=== PATIENT | female | born 1975 | race Caucasian/White ===

== ENCOUNTER 2024-02-14 14:30 | Outpatient (RCR) | payer BC, SELFPAY ==
--- NOTE | 2024-01-22 11:50 | OPREHPOC ---
Outpatient Therapy Plan of Care This is a Multidisciplinary Plan of Care that may contain components documented by all disciplines (PT, OT, and ST.) PT Problem 1 PT Problem #1 Knowledge Deficit PT Goal 1 Goal / Goal Update [place] with HEP PT Goal 2 Goal / Goal Update Patient will report 75% improvement in frequency and intensity of shoulder and neck pain Target Visit 8 PT Problem 2 PT Problem #2 Impaired Functional Mobil PT Goal 1 Goal / Goal Update Patient will report absence of distal tingling and numbness into fingers Target Visit 8 PT Goal 2 Goal / Goal Update Patient will reflect 15% + reduction in disability index with QuickDASH Target Visit 8 PT Problem 3 PT Problem #3 Impaired Strength PT Goal 1 Goal / Goal Update Improve tyesha shoulder external rotatin strength to 5/5 to improve shoulder girdle stability too improve overhead activity Target Visit 8 PT Goal 2 Goal / Goal Update Patient will demonstrate ability to lift 5# overhead x 10 without upper trapezius substitution Target Visit 8
--- NOTE | 2024-01-22 11:50 | PTOPEVAL1 ---
Assessment and note entered by Jack Cerna, PT Evaluation Information Assessment Status Evaluation Diagnosis M75.112 Supraspinatus tear ICD-10 Condition Codes (PT) M25.512 Onset January 2023 Subjective Information Reports that she is feeling pain at base of the neck and the worse part of her day is driving. She is currently getting a pull on the posterior shoulder and tingling all the way to her thumb and fingers. The more she lifts, the more shoulder pain she gets. Increase pain with left posterior quadrant motion. Sleeping is not too bad, but pain is based on activity. She takes Ibuprophen only when it is really bad. Reported Pain Level Pain Score 1: Self Report Assessment PT Clinical Summary Patient presents with dynamic cervical compression and weakness of left upper rotator cuff consistent with rotator cuff tendinopathy. Patient will benefit from skilled therapy to address these deficits to improve ROM, Improve shoulder girdle stability, and reduce pain. Plan of Care Interventions Electrical Stimulation,Hot Pack/Cold Pack,Manual Therapy,Neuro Re-education,Therapeutic Activities, Therapeutic Exercise Other Interventions Dry Needling PT Services Indicated Yes Treatment Frequency and 2x/week for 8 visits Duration These treatments will address the objective and functional deficits as defined above. The patient will be advanced safely and appropriately in order for the patient to progress towards his/her prior level of function. Additional exercises will be introduced and as well as a comprehensive home exercise program upon discharge, if needed, ?to ensure carryover of functional gains achieved in the clinic. This treatment plan has been reviewed and agreement upon by the patient.
--- NOTE | 2024-02-14 15:20 | PTOPDC ---
Assessment and note entered by Maria Ines Salmeron, PT Discharge Report Assessment Status Discharge Diagnosis M75.112 Supraspinatus tear ICD-10 Condition Codes (PT) M25.512 Onset January 2023 Subjective Information therapy has helped a little, but still have pain and tingling and numbness into L fingers; like dry needling; have appt with yasir cristina Mar 06; awaiting approval for MRI of shoulder; have been doing the exercises and stretching at home; wants to stop therapy for now, get the MRI and see the ortho . Reported Pain Level Pain Score Self Report Additional Pain Score Comments pain range in the past week: 2-5/10; numbness and tingling L UE into anterior humerus, forearm and thumb and first finger 75% of day; posterior shoulder and lateral cervical, upper traps pain increase with arm hanging- need to prop in sling or on chair; more use of arm at work (work at [employer]- use arms constantly- work 5, 10 hour days/wk) decrease pain: prop up/rest arm; ibuprofen PRN; not use heat or ice; sleeping is not disrupted due to pain, except cannot lie on her L side, so avoid it with sleeping; Assessment PT Clinical Summary Binta has received 8 PT sessions. Compared to the initial evaluation: pain rating is about the same and continues to have radicular pain into L UE- thumb and fingers ~ 75% day; self assessment Quick DASH rating is the same at 25% limitation in activity level; dry needling and pain modalities gave her slight relief, but it did not last for her; education completed for HEP and posture of shoulder, with pain management techniques. The goal was met for education, but others were not achieved. Discharge PT. She is to continue with the stretching to maintain her ROM and gentle strengthening as tolerated. She has an appointment with ortho for further assessment of her shoulder. Plan of Care PT Services Indicated No
== END 2024-02-16 08:53 | disposition home or self-care (01) ==
LOC: ANHPT 14:30
PROVIDERS: PCP Physician Assistant; Visit Provider Physician Assistant
DX: M75.112 Incomplete rotator cuff tear or rupture of left shoulder, not specified as traumatic (principal)
CPT/HCPCS: 97014; 97110; 97140; 97161; G0283

== ENCOUNTER 2024-03-21 09:08 | Outpatient (CLI) | payer BC, SELFPAY ==
--- NOTE | ~2024-03-21 | MR_ITS ---
MRI of the cervical spine Clinical History: Recurrent uropathy, neck pain Technique: Axial T2-weighted and gradient images, and sagittal T1-weighted, T2-weighted, and STIR young ges were acquired. Findings: There is minimal reversal normal cervical lordosis. No fracture or subluxation. No suspicio us bone marrow signal abnormality. At C2-C3, there is no disc bulge or herniation. No spinal canal stenosis, cord compression, or neural foraminal narrowing. At C3-C4, there is no significant disc bulge or herniation. No spinal canal stenosis, cord compressio n, or right neural foraminal narrowing. Possible mild left neural foraminal narrowing. At C4-C5, there is small central disc extrusion which minimally flattens the ventral cord. Bilateral neural foramina are preserved. At C5-C6, there is mild disc osteophyte complex which mildly flattens the ventral cord and contribute s to left neural foraminal narrowing. Right neural foramen preserved. At C6-C7, there is mild central disc protrusion. No canal stenosis or cord compression. No definite n eural foraminal narrowing. No abnormal signal seen in the spinal cord. Paravertebral soft tissues are unremarkable. Impression: Degenerative changes, most severe at C4-C5 and C5-C6, with mild flattening the ventral cord these lev els. Please see details above. Reviewed, dictated and finalized at [facility]. [employer] Impression: Degenerative changes, most severe at C4-C5 and C5-C6, with mild flattening the ventral cord these levels. Please see details above.
== END 2024-03-21 09:09 | disposition home or self-care (01) ==
PROVIDERS: PCP Orthopaedic Surgery; Visit Provider Orthopaedic Surgery
DX: M50.321 Other cervical disc degeneration at C4-C5 level (principal); M50.322 Other cervical disc degeneration at C5-C6 level; M25.78 Osteophyte, vertebrae; M50.221 Other cervical disc displacement at C4-C5 level
CPT/HCPCS: 72141

== ENCOUNTER 2024-05-24 11:00 | Outpatient (RCR) | payer BC, SELFPAY ==
--- NOTE | 2024-05-10 08:10 | PCPTNOTE ---
pt was 10 minutes late for initial evaluation.
--- NOTE | 2024-05-10 09:00 | OPREHPOC ---
Outpatient Therapy Plan of Care This is a Multidisciplinary Plan of Care that may contain components documented by all disciplines (PT, OT, and ST.) PT Problem 1 PT Problem #1 Knowledge Deficit PT Goal 1 Goal / Goal Update *indep with HEP Target Visit 8 PT Goal 2 Goal / Goal Update * correct body mechanics/posture with exercises Target Visit 8 PT Problem 2 PT Problem #2 Pain PT Goal 1 Goal / Goal Update * decrease pain to rating of worst 2/10 Target Visit 8 PT Goal 2 Goal / Goal Update *radicular pain into L UE to mid humerus at worst Target Visit 8 PT Problem 3 PT Problem #3 Impaired Flexibility PT Goal 1 Goal / Goal Update * increase cervical rotation motion, to improve driving and work ability: rotation to R and L 75' Target Visit 8 PT Problem 4 PT Problem #4 Impaired Strength PT Goal 1 Goal / Goal Update *increase thoracic-scapular strength to 4+/5 improve position of spine Target Visit 8
--- NOTE | 2024-05-10 09:01 | PTOPEVAL1 ---
Assessment and note entered by Maria Ines Salmeron, PT Evaluation Information Assessment Status Evaluation ICD-10 Condition Codes (PT) Cervicalgia M54.2,Radiculopathy, cervical M54.13 Onset Dec 2023 Subjective Information initial injury to neck and L shoulder in 2020 with dog pulling leash, intermittent pain since then, was into L fingers in Dec and worse; now little less to elbow, but still there; L hand dominant; saw yasir cristina---was told L shoulder has partial tear, but want to address neck before do anything with shoulder saw neurosurgeon-- MRI with changes C 4-5-6; to have PT, then reassess if surgery indicated or not previous PT here--exercises to strength shoulder; manual therapy, stim, dry needling to neck- helped; continues to do the stretching from HEP: posterior shoulder circles, bilateral yellow band exercises 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 Reported Pain Level Pain Score Self Report Additional Pain Score Comments pain range in the past week: 1-4/10; intermittent tingle into L UE to elbow; pull in L upper traps dull pain over lateral upper arm; increase pain: driving, decrease pain: over the counter meds PRN, heat, stretching sleeping is OK; able to do all of the work and home tasks--pain increase, but not stopping her from doing what she needs to do Assessment PT Clinical Summary Binta has the diagnosis of cervical radiculopathy. Radicular pain is intermittent to L shoulder and UE to elbow. Pain has decreased recently. She is L hand dominant and able to do her home and work tasks, but has increase pain. Self assessment with Neck Index rating of 14% limitation in activity level. She had PT at the end of last year and has been doing the stretches and using the education to help her improve. Reports she wants to avoid surgery. Also have seen yasir cristina about L shoulder pain and was told she had partial tear of shoulder. With the evaluation: she has increased pain with cervical extension and retraction, and L shoulder ER and abduction motions; posture with slight side bend cervical to R and rounded shoulders; spasms and tenderness over lower cervical and L upper traps. Skilled PT services are indicated for modalities to decrease pain, radicular and muscle spasms; therapeutic exercises to increase flexibility of [id number] musculature and education for HEP,pain management and posture correction. Plan of Care Interventions Electrical Stimulation,Hot Pack/Cold Pack,Manual Therapy,Mechanical Traction,Neuro Re-education, Patient/Caregiver Education,Therapeutic Activities ,Therapeutic Exercise,Other Other Interventions dry needling, tape PT Services Indicated Yes Treatment Frequency and 1-2x/wk for 8 visits Duration These treatments will address the objective and functional deficits as defined above. The patient will be advanced safely and appropriately in order for the patient to progress towards his/her prior level of function. Additional exercises will be introduced and as well as a comprehensive home exercise program upon discharge, if needed, ?to ensure carryover of functional gains achieved in the clinic. This treatment plan has been reviewed and agreement upon by the patient.
--- NOTE | 2024-05-28 10:27 | PTOPDC ---
Assessment and note entered by Maria Ines Salmeron, PT Assessment Status Discharge - Pt Not Present ICD-10 Condition Codes (PT) Cervicalgia M54.2,Radiculopathy, cervical M54.13 Onset Dec 2023 Subjective Information pt called and canceled her remaining appointments, is doing better. Assessment PT Clinical Summary Binta has received 3 PT sessions. She has been educated on HEP, posture and body mechanics. Discharge PT per pt request- cancel due to feeling better. Plan of Care PT Services Indicated No
== END 2024-05-28 12:25 | disposition home or self-care (01) ==
LOC: ANHPT 11:00
PROVIDERS: PCP Orthopaedic Surgery; Visit Provider Neurological Surgery
DX: M54.12 Radiculopathy, cervical region (principal)
CPT/HCPCS: 97014; 97110; 97140; 97161; G0283